=== PATIENT | male | born 1995 | race Two or more races ===

== ENCOUNTER 2023-12-13 07:57 | Emergency (ER) | payer OTHER ==
[~2023-12-13] VITALS: Ht 170.2 cm; Wt 89.8 kg
[2023-12-13] MEDS ORDERED: ONDANSETRON HCL 2 MG/ML VIAL IV ONE (10:15)
== END 2023-12-13 10:43 | disposition home or self-care (01) ==
LOC: ER 07:58
DX: S69.81XA Other specified injuries of right wrist, hand and finger(s), initial encounter (principal); X83.8XXA Intentional self-harm by other specified means, initial encounter; Y93.79 Activity, other specified sports and athletics; Y92.89 Other specified places as the place of occurrence of the external cause; Y99.8 Other external cause status